=== PATIENT | female | born 1935 ===

== ENCOUNTER → 2023-02-15 | Outpatient (CLI) | payer MEDICARE, OTHER ==
[2023-02-15 20:27] LABS: Bun/Creatinine Ratio 22.3 (12.0-20.0); Calcium, Blood 9.7 mg/dL (8.5-10.1); Creatinine, Blood 0.85 mg/dL (0.40-1.00)
== END | disposition home or self-care (01) ==
LOC: LAB SHORT 10:44 → LAB 10:44
PROVIDERS: Nurse Practitioner Family
DX: R60.9 Edema, unspecified (principal)
CPT/HCPCS: 80048